=== PATIENT | male | born 1995 | race Two or more races ===

== ENCOUNTER 2019-07-11 12:23 | Emergency (ER) | payer OTHER ==
[~2019-07-11] VITALS: Ht 157.5 cm; Wt 72.6 kg
[2019-07-11] MEDS ORDERED: Tetanus/Diptheria/Pertussis IM ONE (12:30)
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
[2019-07-11 12:47] VITALS: BP 120/78
--- NOTE | 2019-07-11 13:16 | Diagnostic Imaging Report ---
EXAM: CT Head Without Intravenous Contrast CLINICAL HISTORY: PAIN TECHNIQUE: Axial computed tomography images of the head/brain without intravenous contrast. CTDI is 60 mGy and DLP is 1274.1 mGy-cm. One or more of the following dose reduction techniques were used: automated exposure control, adjustment of the mA and/or kV according to patient size, use of iterative reconstruction technique. COMPARISON: No relevant prior studies available. FINDINGS: Brain: No hemorrhage. No edema. Ventricles: No ventriculomegaly. Bones/joints: No acute fracture. Soft tissues: Scalp swelling. Sinuses: No acute sinusitis. Mastoid air cells: No mastoid effusion. IMPRESSION: No acute intracranial process.
[2019-07-11] MEDS ORDERED: Lidocaine 2% 20mg/ml/EPI 0.01mg/ml 20ml INJ ONE (13:30)
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
[2019-07-11] MEDS ORDERED: TYLENOL EXTRA500 MG ORAL (14:09)
[2019-07-11] MEDS ORDERED: BACITRACIN-P28.35 GM TP (14:09)
[2019-07-11] MEDS ORDERED: Bacitracin Oint UD TOPIC ONE (14:15)
--- NOTE | 2019-07-11 14:26 | NUR ---
ER DISCHARGE NOTE: Patient is cleared to be discharged per ERMD, pt is aox4, on room air, with stable vital signs. pt was given dc and prescription instructions, pt was able to verbalize understanding, pt id band removed. pt is able to ambulate with steady gait. pt took all belongings. Pt has had wrap placed by vanesa Amaya.
[2019-07-11 14:27] VITALS: BP 118/82
== END 2019-07-11 14:27 | disposition home or self-care (01) ==
LOC: EDBD 12:23 → EMR 13:45
DX: S01.01XA Laceration without foreign body of scalp, initial encounter (principal); S09.90XA Unspecified injury of head, initial encounter; Z23 Encounter for immunization; Y04.2XXA Assault by strike against or bumped into by another person, initial encounter; Y92.9 Unspecified place or not applicable
CPT/HCPCS: 70450; 90471; 90715; 99284